=== PATIENT | female | born 1935 | race Caucasian/White ===

== ENCOUNTER 2023-12-18 18:26 | Emergency (ER) | payer OTHER, SELFPAY ==
[2023-12-18 18:30] VITALS: BP 204/78
[2023-12-18 19:07] VITALS: BMI 24.6
[2023-12-18 19:13] VITALS: BP 159/61
--- NOTE | 2023-12-18 19:19 | ED.GENMED ---
History of Present Illness
General
Chief Complaint: Change in Mental Status
Time Seen by Provider: 12/18/23 18:50
History of Present Illness
History of Present Illness:
88-year-old female with history of hypertension and dementia presenting to the emergency department for concern of change in mental status. Patient arrives with daughter who reports for the past 3 weeks patient has been having delusional behavior.
She continues to call her and other family members that a family friend is calling her and asking her for money, which she knows is not happening. Patient herself without acute complaints. Daughter is concerned for possible urine infection.
Patient denies chest pain, difficulty breathing, abdominal pain, dysuria. Denies fever or recent illness. Denies recent fall. Denies additional acute medical complaint
Past History
Past History
ED Past Medical History: HTN
Social History
Personal:
Phy Exam
Physical Exam
Physical Exam:
General: Well-appearing, no clinical signs of dehydration, nontoxic and in no acute distress
HEENT: protecting airway
Neck: appears supple
CV: Normal heart rate, regular rhythm, no evidence of cyanosis
Resp: No accessory muscle use, no increased work of breathing, lungs clear to auscultation bilaterally
Abd: Soft and non-distended, no tenderness to palpation
Extremities: No deformities, no swelling, no erythema
Neuro: alert, no focal neurologic deficit
: deferred
Rectal: deferred
Psych: Normal affect
Skin: Intact
Course
Orders/Labs/Results
Orders:
Orders
12/18/23 19:13
CT Head W/o Iv Contrast Urgent
Comment:
Reason For Exam: dementia, increased delusions
Metoprolol [Lopressor] 5 mg IV NOW STA
12/18/23 19:17
Complete Blood Count/With Diff Urgent
Comprehensive Metabolic Panel Urgent
12/18/23 19:45
Urinalysis Reflex To Culture Urgent
Date Specimen was Collected: 12/18/23
Time Specimen was Collected: 19:44
Urine Microscopic Reflex Cult Urgent
Urine Culture Urgent
LAURY Source: U
Specimen Description:
Obtained by: Random
Date Specimen was Collected: 12/18/23
Time Specimen was Collected: 19:44
Abnormal Lab Results
12/18/23 12/18/23
19:17 19:45
RBC 3.97 L 10^6/uL
(4.20-5.40)
Hgb 11.3 L g/dL
(12.0-16.0)
Hct 34.4 L %
(37.0-47.0)
MCHC 32.8 L g/dL
(33.0-37.0)
BUN 26 H mg/dl
(7-17)
AST 54 H U/L
(14-36)
Total Protein 6.1 L g/dl
(6.3-8.2)
Ur Occult Blood Reflex Trace A
(Negative)
Urine Nitrite (Reflex) Positive A
(Negative)
Leukocyte Esterase Rfl 2+ A
(Negative)
Urine WBC (Reflex) 16-20 A /HPF
(0-5)
Urine Bacteria (Reflex) Moderate A
(Negative)
12/18/23 19:17
12/18/23 19:17
Vital Signs
Initial and Last Documented VS:
Initial Vital Signs
Temp Pulse Resp BP Pulse Ox
98.8 F 60 16 204/78 98
12/18/23 18:30 12/18/23 18:30 12/18/23 18:30 12/18/23 18:30 12/18/23 18:30
Last Documented Vital Signs
Temp Pulse Resp BP Pulse Ox
98.8 F 60 16 161/52 98
12/18/23 18:30 12/18/23 19:30 12/18/23 18:30 12/18/23 20:00 12/18/23 20:00
MDM/Problems Addressed
MDM/Problems Addressed:
88-year-old female with history of dementia and hypertension presenting for concern of change in mental status with increased delusions. Vital signs on arrival are significant for hypertension. Patient is on metoprolol, however daughter notes that
she is not taking it appropriately. Blood pressure improved without intervention.
On exam patient is well-appearing, resting comfortably, no acute distress comfort. Unremarkable examination, no present focal neurologic deficits. Unremarkable cardiac, pulmonary, abdominal exam. Possible decompensated dementia. Daughter notes
the patient has not seen a doctor in about 3 years. Given acute change, will obtain CT brain, laboratory analysis, urinalysis to ensure no additional process.
21:00 -Labs unremarkable. CT unremarkable. Urine does show evidence of acute urinary tract infection with positive nitrites. Will start on antibiotics. Otherwise feel stable for discharge. Daughter will stay with patient tonight. Patient
verbalized understanding
*Critical Care Note
Total Time (30-74mins, 75-104mins- exclusive of procedures): Not Applicable
ED Attending Note
-
Portions of this chart may have been created with voice recognition software.� Occasional wrong word or��sound alike� substitutions may have occurred due to the inherent limitations of voice recognition software.
Discharge Plan
Departure
Prescriptions:
No Action
aspirin 81 MG tablet,delayed release (DR/EC)
81 mg PO DAILY
metoprolol tartrate 50 MG tablet
50 mg PO BID
lisinopril 10 MG tablet
10 mg PO DAILY Qty: 30 0RF
Referrals:
Taty Dwyer CRNP [Family Provider] -
Interventions
Interventions:
*Risk Screen - Suicide Last Done: 12/18/23 18:32
*General Assessment Last Done: 12/18/23 19:11
*Neglect/Abuse Screening Last Done: 12/18/23 18:32
ED- Fall Risk Assessment Last Done: 12/18/23 19:25
ED- Pulmonary Assessment Last Done: 12/18/23 19:25
ED- Neurological Assessment Last Done: 12/18/23 19:25
ED Swallowing Screen Last Done: 12/18/23 19:25
Discharge Date and Time
Print Language: VINCENTIAN
[2023-12-18 19:30] LABS: % Basophils 0.5 % (0-2); % Eosinophils 2.8 % (0-6); % Immature Granulocytes 0.1 % (0-0.5); % Lymphocytes 28.6 % (20.5-51.1); % Monocytes 7.8 % (1.7-9.3); % Neutrophils 60.2 % (42.2-75.2); Absolute Eosinophils 0.2 10^3/uL (0-0.7); Absolute Lymphocytes 2.3 10^3/uL (1.2-3.4); Absolute Monocytes 0.6 10^3/uL (0.1-0.6); Absolute Neutrophils 4.8 10^3/uL (1.4-6.5); Hematocrit 34.4 % (37.0-47.0); Hemoglobin 11.3 g/dL (12.0-16.0); Mean Corp Hgb Conc. 32.8 g/dL (33.0-37.0); Mean Corpuscular Hgb 28.5 pg (27.0-31.0); Mean Corpuscular Volume 86.6 fL (81.0-99.0); Mean Platelet Volume 10.1 fL (7.4-10.4); Nucleated Red Blood Cells % 0 %; Platelet Count 275 10^3/uL (130-400); Red Blood Cell Count 3.97 10^6/uL (4.20-5.40); Red Cell Dist. Width 13.8 % (11.5-14.5)
[2023-12-18 19:43] LABS: ALT (SGPT) 21 U/L (0-35); AST (SGOT) 54 U/L (14-36); Alkaline Phosphatase 57 U/L (38-126); Blood Urea Nitrogen 26 mg/dl (7-17); Calcium 9.9 mg/dl (8.4-10.2); Carbon Dioxide 27 mmol/L (22-30); Chloride 106 mmol/L (98-107); Estimated Creatinine Clearance 36 ml/min; Glucose 98 mg/dl (70-99); Sodium 144 mmol/L (135-145); Total Bilirubin 0.4 mg/dl (0.2-1.3); Total Protein 6.1 g/dl (6.3-8.2); eGFR 54.87
[2023-12-18 19:50] LABS: Urine Albumin Negative (Neg - Trace); Urine Bilirubin Negative (Negative); Urine Character Clear (Clear); Urine Color Yellow; Urine Glucose Negative (Negative); Urine Ketone Negative (Negative); Urine Leukocyte 2+ (Negative); Urine Nitrite Positive (Negative); Urine Occult Blood Trace (Negative); Urine Specific Gravity 1.025 (<1.030); Urine Urobilinogen Negative (Neg - 1+)
[2023-12-18 19:58] LABS: Urine Bacteria Moderate (Negative); Urine Red Blood Cell 0-2 /HPF (0-2); Urine White Cell 16-20 /HPF (0-5)
[2023-12-18 20:00] VITALS: BP 161/52
[2023-12-18] MEDS: KEFLEX 500 MG PO (21:13)
[2023-12-18 21:14] VITALS: BP 158/64
== END 2023-12-18 21:33 | disposition home or self-care (01) ==
LOC: EMR 18:26
PROVIDERS: EMERGENCY PHYSICIAN Student in an Organized Health Care Education/Training Program; FAMILY PHYSICIAN Nurse Practitioner Primary Care
DX: N39.0 Urinary tract infection, site not specified (principal); F03.92 Unspecified dementia, unspecified severity, with psychotic disturbance; I10 Essential (primary) hypertension; Z79.82 Long term (current) use of aspirin; Z88.0 Allergy status to penicillin
CPT/HCPCS: 99284; 70450; 80053; 81003; 81015; 85025; 87086